=== PATIENT | male | born 1990 | race Caucasian/White ===

== ENCOUNTER 2016-09-17 14:30 | Observation (INO) | payer OTHER ==
--- NOTE | ~2016-09-17 | DS ---
Unit #: [id number] #: [id number] Patient: KAYE MCCLAIN [id number] [address] [address] [id number] I MR#: [id number] NAME: KAYE MCCLAIN ROOM: 233 Age: 26 Sex: M Admission Date: 09/17/2016 : 1990 Discharge Date: 09/18/2016 Attending Physician: Kelvin Baker M.D. Primary Care Physician: Jesús Terry M.D. DISCHARGE SUMMARY ADMITTING DIAGNOSIS Left ureteral stone. DISCHARGE DIAGNOSIS Left ureteral stone, status post cystoscopy, left ureteroscopy, stone basket extraction and stent. ADMITTING INFORMATION The patient is a pleasant 26-year-old male with a small left distal ureteral stone. He has been in the emergency room x2 over the week prior to admission. He was admitted for further management. HOSPITAL COURSE The patient was admitted. He was placed on medical expulsive therapy with IV fluids and Flomax and pain control, who was unable to pass the stone. He underwent the above procedure without complications. He will be discharged home. DISCHARGE MEDICATIONS Percocet, Bactrim. He will resume his admitting medications. FOLLOWUP He will follow up in 5 to 7 days for stent removal. No x-rays were required. He will follow up sooner with any concerns including temperature greater than 101, pain not controlled by p.o. pain medications, chest pain, shortness of breath, unilateral lower extremity swelling, or any concerns. Dictated by... Yanna Corea/raina TD: 09/19/2016 08:26 JOB #: [id number] Unit #: [id number] #: [id number] Patient: KAYE MCCLAIN DISCHARGE SUMMARY Page 1 of 1 X Kelvin Baker MD X DISCHARGE SUMMARY
--- NOTE | ~2016-09-17 | HP ---
Unit #: [id number] #: [id number] Patient: KAYE MCCLAIN [id number] [address] [address] [id number] I MR#: [id number] NAME: KAYE MCCLAIN ROOM: 233 Age: 26 Sex: M Admission Date: 09/17/2016 : 1990 Attending Physician: Kelvin Baker M.D. Primary Care Physician: Jesús Terry M.D. HISTORY AND PHYSICAL ADMITTING DIAGNOSIS Left ureteral stone. HISTORY OF PRESENT ILLNESS The patient is a 26-year-old male who presented with an approximately five day history of left flank pain. He had previously been seen on 09/13/2016 and was found to have a left small distal ureteral stone. He returned with persistent flank pain. He denies fevers and chills. He has had previous nephrolithiasis. PAST MEDICAL HISTORY Asthma. PAST SURGICAL HISTORY 1. ACL repair. 2. Tonsils. 3. Stone surgery. MEDICATIONS AND ALLERGIES Documented in the chart. REVIEW OF SYSTEMS Positive for left flank pain. Negative for fever and negative for chills. PHYSICAL EXAMINATION VITAL SIGNS: Temperature 97.3, blood pressure 130/62, pulse 72, respirations 18. HEAD: Normocephalic and atraumatic. LUNGS: The patient is breathing comfortably. ABDPOMEN: The abdomen is soft and nontender, nondistended. EXTREMITIES: No cyanosis, clubbing or edema. DIAGNOSTIC STUDIES IMAGING: CT scan as above. He has a left 2 mm distal ureteral stone with hydroureteronephrosis. LABORATORY: Creatinine 1.1, white blood cell count 4.1. ASSESSMENT AND PLAN Left ureteral stone: We will plan a cystoscopy, left ureteroscopy, possible laser lithotripsy and stent. He has been on medical expulsion therapy and he has failed this. Risks, benefits and alternatives including bleeding, infection, damage to adjacent structures, need for Unit #: [id number] #: [id number] Patient: KAYE MCCLAIN further surgery, need for nephrostomy tube as well as the risk of general anesthetic were explained to the patient. Informed consent was obtained. He wished to proceed. Dictated by Kelvin Baker M.D. GAUDENCIO/lesley TD: 09/18/2016 15:22 JOB #: [id number] HISTORY AND PHYSICAL Page 1 of 1 X Kelvin Baker MD HISTORY AND PHYSICAL
--- NOTE | ~2016-09-17 | OR ---
Unit #: [id number] #: [id number] Patient: KAYE MALAGON [id number] [address] [place], [place] [address] [id number] Nelsy MR#: [id number] NAME: KAYE MALAGON ROOM: 233 Date of Procedure: 09/18/2016 Admission Date: 09/17/2016 Surgeon: Kelvin Baker M.D. : 1990 Attending Physician: Kelvin Baker M.D. Primary Care Physician: Jesús Terry M.D. OPERATIVE REPORT PREOPERATIVE DIAGNOSIS Left ureteral stone. POSTOPERATIVE DIAGNOSIS Left ureteral stone. PROCEDURES PERFORMED 1. Cystoscopy. 2. Left ureteroscopy. 3. Left stone basket extraction. 4. Left retrograde pyelogram. 5. Interpretation of left retrograde pyelogram. 6. Left 6-Canadian x 26 cm double-J stent. ANESTHESIA General. INDICATIONS FOR PROCEDURE Mr. Malagon is a pleasant 26-year-old male with a left distal ureteral stone. He has failed a trial of passage and medical expulsion therapy. The risks, benefits, and alternatives, including bleeding, infection, damage to adjacent structures, including the kidney, ureter, bladder, and urethra, need for further surgery, as well as risk of anesthesia were explained to the patient. Full informed consent was obtained. He wished to proceed. DESCRIPTION OF PROCEDURE The patient was taken to the operative suite and properly identified. After the application of satisfactory general anesthetic, the patient was placed in dorsal lithotomy position. All pressure points were padded to satisfaction of surgical, anesthetic, and nursing teams. The genitalia were prepped and draped in usual sterile fashion. I passed a rigid 22-Canadian cystoscope. The entire urethra was normal. The prostate was nonobstructing. The bladder had no tumors, stones, or masses. I identified the left ureteral orifice. I passed a 0.035 Sensor wire, which I was able to manipulate into the kidney with a small left ureteral orifice. I therefore elected to sequentially dilate using Lubriglide dilators from 6-Canadian to 10-Canadian. I passed a semi-rigid ureteroscope alongside the wire and encountered the stone in the distal ureter. I grasped it with a Nitinol basket and atraumatically removed the stone. I then passed a Pollack catheter. I shot a left retrograde pyelogram. The interpretation is as follows. Unit #: [id number] #: [id number] Patient: KAYE MALAGON Interpretation of left retrograde pyelogram: There is [id number] hydroureteronephrosis down to the level of the distal ureter. There is no filling defect. There is a single collecting system. I passed a 6-Canadian x 26 cm double-J stent over the wire, which coiled in the bladder and in the kidney with string attached. Bladder was emptied. The scope was removed. The Uro-jet was passed. The patient tolerated the procedure well without complications. He was transported stable and extubated to PACU. PLAN Plan will be for the patient to follow up in 5 to 7 days for stent removal. He does have a string. No x-rays are required. Dictated by... Yanna Corea/raina TD: 09/19/2016 08:32 JOB #: [id number] OPERATIVE REPORT Page 1 of 1 X Kelvin Baker MD X PROCEDURE OPERATIVE NOTE
[~2016-09-17 14:30] MED LIST: ALBUTEROL17 GM INH
[2016-09-18 06:19] LABS: HEMATOCRIT 42.1 % (38.0-50.0); HEMOGLOBIN 14.5 gm/dL (13.0-16.0); MEAN CELL VOLUME 87.9 FL (83-96); MEAN CORPUSCULAR HEMOGLOBIN 30.3 PG (28-34); MEAN CORPUSCULAR HGB CONC 34.4 g/dL (30-36); MEAN PLATELET VOLUME 7.5 FL (6.5-11.5); RED BLOOD COUNT 4.79 X10e (3.90-5.60); RED CELL DISTRIBUTION WIDTH 12.6 % (11.0-15.5); WHITE BLOOD COUNT 4.1 X10e3 (4.0-10.5)
[2016-09-18 06:49] LABS: BLOOD UREA NITROGEN 12 mg/dL (9-23); CALCIUM SERUM 8.5 mg/dL (8.4-10.2); CARBON DIOXIDE 25 mmol/L (22-31); CHLORIDE 110 mmol/L (100-111); CREATININE SERUM 1.1 mg/dL (0.6-1.4); GLOM FILT RATE Estimated ABOVE60 mL/min (>60); GLUCOSE FASTING 85 mg/dL (70-110); POTASSIUM 3.8 mmol/L (3.5-5.1); SODIUM 141 mmol/L (135-145)
[2016-09-18] MEDS ORDERED: BACTRIM DS TABL1 TA1 PO (16:13)
[2016-09-18] MEDS ORDERED: PERCOCET10 PO (16:14)
== END 2016-09-18 17:02 | disposition home or self-care (01) ==
LOC: C2A 14:30
PROVIDERS: Urology
DX: N13.2 Hydronephrosis with renal and ureteral calculous obstruction (principal); Z87.442 Personal history of urinary calculi; Z88.0 Allergy status to penicillin; Z88.1 Allergy status to other antibiotic agents; J45.909 Unspecified asthma, uncomplicated
CPT/HCPCS: 80048; 82365; 85027; 88300; 96374; 96375; 96376; C2617; G0378; J1956; J2250; J2270; J2405; J3010